=== PATIENT | male | born 1980 | race Caucasian/White ===

== ENCOUNTER 2020-12-16 16:43 | Emergency (ER) | payer OTHER ==
[~2020-12-16] VITALS: Ht 165.1 cm; Wt 81.7 kg
[~2020-12-16 16:43] MED LIST: ALLEGRA-D 12 H1 EAC1 PO; CEPHALEXIN 500500 M3 PO; FLONASE 0.05%50 MCG NASAL; IBUPROFEN 800800 M1 PO
[2020-12-16 17:07] VITALS: BP 151/80
== END 2020-12-16 17:08 | disposition home or self-care (01) ==
LOC: M.ERS 16:43
DX: S80.12XA Contusion of left lower leg, initial encounter (principal); S80.11XA Contusion of right lower leg, initial encounter; X58.XXXA Exposure to other specified factors, initial encounter; Y93.89 Activity, other specified; Y92.89 Other specified places as the place of occurrence of the external cause; Y99.8 Other external cause status